=== PATIENT | male | born 1970 | race African-American/Black ===

== ENCOUNTER 2024-06-13 15:30 | Inpatient (IN) | payer OTHER ==
[2024-06-13 16:34] VITALS: BMI 21.9
[2024-06-13] MEDS ORDERED: MAG HYDROX/AL HYDROX/SIMETH 30 ML UNIT-DOSE CUP PO PRN (16:48)
[2024-06-13] MEDS ORDERED: IBUPROFEN 400 MG TABLET (FP) PO PRN (16:48)
[2024-06-13] MEDS ORDERED: guaiFENesin 600 MG TABLET.ER (FP) PO PRN (16:48)
[2024-06-13] MEDS ORDERED: METHOCARBAMOL 500 MG TABLET PO PRN (16:48)
[2024-06-13] MEDS ORDERED: NALOXONE (NARCAN) HCL 4 MG/0.1 ML SPRAY NS PRN (16:48)
[2024-06-13] MEDS ORDERED: BISMUTH SUBSALICYLATE 524 MG/30 ML PO PRN (16:48)
[2024-06-13] MEDS ORDERED: DICYCLOMINE HCL 10 MG CAPSULE PO PRN (16:48)
[2024-06-13] MEDS ORDERED: POLYETHYLENE GLYCOL (HEALTHYLAX) 3350 17 GM PACKET PO PRN (16:48)
[2024-06-13] MEDS ORDERED: IBUPROFEN 600 MG TABLET (FP) PO PRN (16:48)
[2024-06-13] MEDS ORDERED: BENZOCAINE/MENTHOL (CHLORASEPTIC ) LOZENGE MM PRN (16:48)
[2024-06-13] MEDS ORDERED: MAGNESIUM HYDROX 2400MG/30ML ORAL SUSPENSION 30 ML CUP PO PRN (16:48)
[2024-06-13] MEDS ORDERED: hydrOXYzine PAMOATE 25 MG CAPSULE (FP) PO PRN (16:48)
[2024-06-13] MEDS ORDERED: ONDANSETRON *ODT* 4 MG TABLET SL PRN (16:48)
[2024-06-13] MEDS ORDERED: LOPERAMIDE HCL 2 MG CAPSULE PO PRN (16:48)
[2024-06-13] MEDS ORDERED: BENZONATATE 200 MG CAPSULE PO PRN (16:48)
[2024-06-13] MEDS ORDERED: NICOTINE POLACRILEX 2 MG GUM BUC PRN (16:58)
[2024-06-13] MEDS: THIAMINE 100 MG TABLET PO SCH (21:39)
[2024-06-13] MEDS: MIRTAZAPINE 15 MG TABLET (FP) PO SCH (21:39)
[2024-06-13] MEDS: MELATONIN 5 MG TABLETS PO SCH (21:40)
[2024-06-13] MEDS: NALTREXONE HCL 50 MG TABLET PO ONE ×2 (21:42→21:50)
[2024-06-13] MEDS: FLUTICASONE PROP 0.05% 16 GM NASAL SPRAY NS SCH (22:08)
[2024-06-14] MEDS ORDERED: LORazepam 1 MG TABLET PO PRN (09:16)
[2024-06-14] MEDS: NICOTINE 21 MG/24 HOURS TOPICAL PATCH TD SCH (10:42)
[2024-06-14] MEDS: PRENATAL VITAMINS W/ FOLIC ACID TABLET (FP) PO SCH (10:42)
[2024-06-14] MEDS: NALTREXONE HCL 50 MG TABLET PO SCH (10:42)
[2024-06-14] MEDS: LORazepam 2 MG TABLET PO SCH (10:44)
[2024-06-14 13:06] LABS: CHLORIDE 101 mmol/L (98-107); POTASSIUM 3.8 mmol/L (3.5-5.1); SODIUM 137 mmol/L (136-145)
[2024-06-14 13:10] LABS: HEMATOCRIT 33.5 % (35.4-49); HEMOGLOBIN 11.1 GM/dL (11.7-16.9); MCH 28.9 pg (25.7-33.7); MEAN CELL VOLUME 87.5 fl (80-96); MEAN PLT VOLUME 8.9 fl (7.5-11.1); PLATELET COUNT 112 10^3/uL (134-434); RBC 3.83 M/mm3 (4.00-5.60); RDW 15.3 % (11.9-15.9)
[2024-06-14 13:13] LABS: ALBUMIN 3.4 g/dl (3.4-5.0); ANION GAP 6 mmol/L (4-13); BLOOD UREA NITROGEN 9.4 mg/dL (7-18); CALCIUM 9.2 mg/dL (8.5-10.1); CO2 30 mmol/L (21-32)
[2024-06-14 13:14] LABS: GLUCOSE,RANDOM 112 mg/dL (74-106)
[2024-06-14 13:17] LABS: CREATININE 0.5 mg/dL (0.55-1.3); SGOT/AST 80 U/L (15-37); SGPT/ALT 54 U/L (13-61)
[2024-06-14 13:18] LABS: BILIRUBIN,TOTAL 0.7 mg/dL (0.2-1); TOT PROT 7.5 g/dl (6.4-8.2)
[2024-06-14 13:19] LABS: ALK PHOS 110 U/L (45-117)
[2024-06-15] MEDS: LORazepam 1 MG TABLET PO SCH (06:00)
[2024-06-15] MEDS: ACETAMINOPHEN 325 MG TABLET (FP) PO PRN (22:22)
[2024-06-16] MEDS: LORazepam 0.5 MG TABLET PO SCH (05:40)
[2024-06-16 13:18] VITALS: RESP 16
[2024-06-17] MEDS: LORazepam 0.5 MG TABLET PO ONE (06:00)
[2024-06-17 06:42] VITALS: BP 124/71; PULSE 61; TEMP 97.1
== END 2024-06-17 10:40 | disposition home or self-care (01) | DRG 775 ==
LOC: YASAS 15:30 → Y6N 20:48
PROVIDERS: ADMIT Allergy & Immunology; ATTEND Allergy & Immunology
PROC: HZ2ZZZZ Detoxification Services for Substance Abuse Treatment (ICD-10-PCS; principal; 2024-06-13)
DX: F10.230 Alcohol dependence with withdrawal, uncomplicated (principal); F17.210 Nicotine dependence, cigarettes, uncomplicated; F10.282 Alcohol dependence with alcohol-induced sleep disorder; R09.81 Nasal congestion
CPT/HCPCS: 36415; 80053; 80305; 80307; 85027; 86780; 93005; 93010